=== PATIENT | female | born 1970 | race Caucasian/White ===

== ENCOUNTER 2024-12-26 08:04 | Outpatient (CLI) | payer OTHER ==
[2024-12-26 09:20] VITALS: BP 115/77; O2SAT 99
[2024-12-26 11:30] VITALS: BP 120/82; O2SAT 99
[2024-12-26 11:45] VITALS: BP 120/80; O2SAT 99
[2024-12-26 12:00] VITALS: BP 114/80; O2SAT 100
== END 2024-12-26 08:10 | disposition home or self-care (01) ==
LOC: TOM 08:04
DX: D17.1 Benign lipomatous neoplasm of skin and subcutaneous tissue of trunk (principal); C40.00 Malignant neoplasm of scapula and long bones of unspecified upper limb